=== PATIENT | male | born 1980 | race Caucasian/White ===

== ENCOUNTER 2017-01-22 13:40 | Inpatient (IN) | payer OTHER ==
[~2017-01-22] VITALS: Ht 193 cm; Wt 103.0 kg
--- NOTE | ~2017-01-22 | ER ---
PATIENT'S NAME: RHONDA ABREU [facility] AGE: 36 Y [address] ROOM: [place] [address] LOCATION: [facility] [place] ADMIT DATE: 01/22/2017 ER/Outpatient Report DISCHARGE DATE: FAMILY PHYSICIAN: PHYSICIAN, NO ATTENDING PHYSICIAN: RA PATEL Time of Arrival: 1340 hours. Time of Evaluation: 1405 hours. CHIEF COMPLAINT: Diarrhea, nausea x2 weeks. HISTORY OF PRESENT ILLNESS: A 36-year-old male presents to the ER, who states he has not been feeling well for the past 2 weeks. The patient is actually from [place], [place]. He states he initially thought he had GI flu because that was going around in their hometown. He was evaluated at the Urgent Care there and covered him with Bactrim, and he had some leftover Zofran that he has been using as well. They state they went [place] for the weekend and [place], and then were on the way back when he felt like he could need to be rechecked out. He states he has a cramping abdominal discomfort more so on his upper quadrants than lower. He states he has had diarrhea as well over the past 2 weeks, that have not improved, and he did vomit initially, but that has not been there for the past few days, however. He did initially have a couple of days of fever but has not ran a fever since and just feels fatigued. He states he has early satiety when he is eating, so he has not been eating or drinking very well. ALLERGIES: PENICILLIN. MEDICATIONS: 1. Bactrim. 2. Zofran. 3. Imodium. PAST MEDICAL HISTORY: Reflux. PAST SURGICAL HISTORY: Knee surgery and LASIK eye surgery. SOCIAL HISTORY: He drinks alcohol rarely. Denies any smoking use. REVIEW OF SYSTEMS: PATIENT'S NAME: RHONDA ABREU [facility] AGE: 36 Y [address] ROOM: [place] [address] LOCATION: [facility] [place] ADMIT DATE: 01/22/2017 ER/Outpatient Report DISCHARGE DATE: FAMILY PHYSICIAN: PHYSICIAN, NO ATTENDING PHYSICIAN: RA PATEL A 10-point review of system was completed and was negative with the exception of those discussed in the HPI. PHYSICAL EXAMINATION: VITAL SIGNS: Height 6 feet 4 inches stated, weight 101.2 kg taken, blood pressure is 127/74, pulse 79, respirations 14, temperature 97.8 degrees tympanically, saturations 97% on room air. Smithers Coma Score is 15. GENERAL: An alert, calm, well-developed male, in no obvious distress. HEENT: Head: Normocephalic. He does display moist mucous membranes. Eyes: Pupils are equal and reactive to light. NECK: Supple. No lymphadenopathy. LUNGS: Clear to auscultation bilaterally. No wheezes or crackles. Normal respiratory effort. HEART: Regular rate and rhythm. No lifts, thrills, or murmurs. ABDOMEN: Soft. He has generalized tenderness in all 4 quadrants with palpation. No guarding or rebound tenderness. He has hypoactive bowel sounds. EXTREMITIES: No clubbing or cyanosis. He has full range of motion of all limbs. SKIN: Warm, dry, and intact. LABORATORY DATA AND X-RAYS: CBC: White count is 6.4, hemoglobin is 15.5, platelets 309, ANC is 3.3. CMS: Potassium is 3.0, alkaline phosphatase is 71, AST is 73, ALT is 79, estimated GFR is 60, BUN is 7, creatinine is 1.7. Total bilirubin is 0.8, amylase is 101, lipase is 1291. Urinalysis is negative for any infection. We did an ultrasound of his right upper quadrant. It does show sludge in the gallbladder. He does have a slightly dilated common bile duct. He also has a mildly elevated spleen. We did do a CT scan with IV contrast, no other acute abnormality was seen besides the gallbladder and reported by Radiology. IMPRESSION: 1. Pancreatitis, most likely secondary to his gallbladder. 2. Hypokalemia. 3. Diarrhea. 4. Splenomegaly. ASSESSMENT AND PLAN: I did discuss the patient's care with Dr. Hatfield. We did start an IV and did give him a total of 2 L of IV fluids and then ran at 125 mL/h. The patient did not want any pain medication while he was here and rested comfortably the entire stay. The patient does not have a primary care physician here in [place]. Therefore, I called the hospitalist service, and they will be admitting the patient for further workup. The patient and the patient's understand and agree with care. PATIENT'S NAME: RHONDA ABREU [facility] AGE: 36 Y [address] ROOM: [address] [address] LOCATION: [facility] [place] ADMIT DATE: 01/22/2017 ER/Outpatient Report DISCHARGE DATE: FAMILY PHYSICIAN: PHYSICIAN, CHARLY ATTENDING PHYSICIAN: RA PATEL ALINA WILCOX PA-C FOR MD PHOENIX VELASQUEZ/ana /[id number] d: 01/22/172120 t: 02/15/17 09, OUTPATIENT REPORT
--- NOTE | ~2017-01-22 | CON ---
PATIENT'S NAME: RHONDA ABREU [facility] AGE: 36 Y [address] ROOM: [address] [place], [place] [address] LOCATION: [facility] [place] ADMIT DATE: 01/22/2017 Consultation DISCHARGE DATE: FAMILY PHYSICIAN: PHYSICIAN, NO ATTENDING PHYSICIAN: RA PATEL DATE OF CONSULTATION: 01/24/2017 REFERRING PHYSICIAN: KAREN REYNA MD REFERRING PROVIDER: Ra Patel MD REASON FOR CONSULTATION: Acute pancreatitis and diarrhea. HISTORY OF PRESENT ILLNESS: This is a very pleasant, 36-year-old male, who has no significant past medical history except for gastroesophageal reflux disease, who takes Nexium with good relief. The patient reports that his symptoms began 2 weeks ago including nausea and diarrhea. At that time, he felt that it was just a "bug." He reports postprandial diarrhea significantly after drinking and eating. Since the onset of his symptoms, he reports a 20-pound weight loss. He has taken Imodium, though it only provides him mild relief with "enough time to get to the restroom." He has complained of night awakening symptoms as well as incontinence secondary to urgency. The patient reports that he has not been eating or drinking secondary to the frequency of the diarrhea. He does note some nausea intermittently. Denies any vomiting. He denies any current fever or chills, though reports fever at home of 102. The patient complains of generalized abdominal discomfort located throughout his abdomen. He denies any blood or melena in his stool. He had been evaluated at Urgent Care and was placed on Bactrim x5 days without any relief. The stool color, he states, is brown, then moved to green, and now currently yellow. Stool studies have been completed that are negative for C diff, O and P, and occult stool. On admission, the patient's lipase was elevated at 1291, with a recheck this morning at 1100. Amylase was 101. Ultrasound showed sludge-filled gallbladder as well as splenomegaly. CT scan was negative. An MRCP was completed, showing gallbladder sludge filled without any stones. There was a small amount of peripancreatic edema noted around the pancreatic head extending into the duodenum. Spleen was measured at 15 cm, though the biliary tree was normal. He denies any family history of gastrointestinal issues, though he is unknown on his biological side. He also denies a history of upper endoscopy and colonoscopy. PAST MEDICAL HISTORY: Gastroesophageal reflux disease. PATIENT'S NAME: RHONDA ABREU [facility] AGE: 36 Y [address] ROOM: [address] [place], [place] [address] LOCATION: [facility] [place] ADMIT DATE: 01/22/2017 Consultation DISCHARGE DATE: FAMILY PHYSICIAN: PHYSICIAN, NO ATTENDING PHYSICIAN: RA PATEL PAST SURGICAL HISTORY: Right knee surgery. He denies any upper endoscopy or colonoscopy. SOCIAL HISTORY: He lives with his . He has 4 children. He denies smoking except for intermittently. He is active in the [employer]. He denies any alcohol or illicit drug use. FAMILY HISTORY: The patient is adopted. He is unsure regarding his biological parent's history. ALLERGIES: PENICILLIN. CURRENT MEDICATIONS: Please refer to the medication administration record. REVIEW OF SYSTEMS: A 10-point review of systems was completed, and all were negative except for those identified in the History of Present Illness. PHYSICAL EXAMINATION: GENERAL: A very pleasant, 36-year-old male, lying in bed, who appears to be in no acute distress. VITAL SIGNS: Temperature 98.0, pulse of 71, respirations of 18, blood pressure 131/61, and oxygen saturation is 96% on room air. SKIN: [place], warm, and dry. No jaundice. HEENT: Head is normocephalic and atraumatic. Pupils are equal, round, and reactive to light. Sclerae are clear, nonicteric. Oral mucosa is pink and moist. No thyromegaly. NECK: Soft and supple. CARDIOVASCULAR: Regular. Normal S1 and S2. RESPIRATORY: Respirations even and unlabored. Lungs clear to auscultation. ABDOMEN: Soft and round. Generalized tender throughout. No rebound, rigidity, or guarding noted. Bowel sounds positive x4 quadrants. MUSCULOSKELETAL: No muscle weakness or atrophy. EXTREMITIES: No clubbing, cyanosis, or edema. NEUROLOGICAL: Grossly nonfocal. LABORATORY AND DIAGNOSTIC DATA: White blood cell count of 5.3, hemoglobin of 13.2, hematocrit of 37.8, and platelets of 223. Chemistry panel includes a glucose of 89, BUN of 4, creatinine of 1.0, sodium 144, potassium of 3.6, chloride of 116, and CO2 of PATIENT'S NAME: RHONDA ABREU [facility] AGE: 36 Y [address] ROOM: [address] [place], [place] [address] LOCATION: [facility] [place] ADMIT DATE: 01/22/2017 Consultation DISCHARGE DATE: FAMILY PHYSICIAN: PHYSICIAN, NO ATTENDING PHYSICIAN: RA PATEL 22. Albumin of 3.0. AST elevated on admission at 73, now 48; ALT elevated at 79, now 83; and alkaline phosphatase of 71, now 50. Total bilirubin 0.8, now is 0.5. Magnesium 2.0. Triglyceride level is 137. Lipase on admission was 1291, with a recheck of 1100 at this time. The patient did undergo abdominal ultrasound showing gallbladder sludge. CT was essentially negative. MRCP completed showing distended gallbladder with sludge. Biliary tree nondilated. No common bile duct stones or gallstones. Splenomegaly. A small amount of peripancreatic fluid at the pancreatic head and second portion of the duodenum consistent with localized pancreatitis. ASSESSMENT AND PLAN: Again, this is a very pleasant, 36-year-old male who was recently admitted to [facility] with a 2-week generalized complaint of abdominal discomfort and diarrhea. 1. Acute mild pancreatitis. The patient's lipase was elevated on admission as well as seen via MRCP. Likely pancreatitis is secondary to biliary in nature. We will allow for bowel rest. We do recommend for the patient to undergo laparoscopic cholecystectomy in approximately 2 weeks after the pancreatitis has continued to resolve. 2. Chronic diarrhea. This is likely infectious in origin. May be Clostridium difficile, though all stool workup has been completed and negative. We will empirically treat with Flagyl. Plan for colonoscopy on for further evaluation. 3. Longstanding gastroesophageal reflux disease. We will also go forth with an upper endoscopy to rule out Lau esophagus and continue management of the patient's gastroesophageal reflux disease. 4. Splenomegaly, unsure of etiology as his spleen measured at 15 cm. We will request hematology/oncology consult secondary to his splenomegaly as well as associated weight loss. We will also obtain a celiac panel for evaluation of celiac disease. Further recommendations to be given over the patient's in-patient stay. Thank you for this consult and allowing us to participate in the care of this patient. ANIKA BLACKWELL APRN FOR MD CHIQUITA LEE/ana /[id number] d: 01/25/17 1419 t: 02/06/17 1150, CONSULTATION REPORT
--- NOTE | ~2017-01-22 | CON ---
PATIENT'S NAME: KYLER ABREU [facility] AGE: 36 Y [address] ROOM: [address] [place], [place] [address] [place]: [facility] [place]MIT DATE: 01/22/2017 Consultation DISCHARGE DATE: FAMILY PHYSICIAN: PHYSICIAN, NO ATTENDING PHYSICIAN: RA PATEL REFERRING PHYSICIAN: KAREN REYNA MD This is a consult to Dr. Reyna. Kyler Abreu is a 36-year-old man with uncharacterized splenomegaly documented in the course of a workup for pancreatitis. HISTORY OF PRESENT ILLNESS: Obtained from and Mrs. Abreu who are good historians and from review of the current [facility] record. Mr. Abreu was in his normal state of health until early to mid December 2016. He lived in [place], [place], with his and their four daughters. He worked in water [employer], 60-70 hours a week. He had no formal or informal exercise program, but was not sedentary. He was limited by right knee pain to running short distances. Two weeks ago, the patient developed diarrhea, abdominal pain, fevers, nausea, vomiting, and ultimately lost 20 pounds. The diarrhea was so severe that he developed fecal incontinence on rare embarrassing occasions. He experienced up to 7 bowel movements on the worst day. He took the loperamide. Sometimes his stools were quite voluminous and sometimes they were not voluminous. His stools were occasionally watery. The discomfort was like a "gurgling." It is in the periumbilical area. It is not clear, but it may radiate to the back. The patient reported to an Urgent Care Center in [place] and trimethoprim/sulfamethoxazole was administered. The patient developed early satiety. He took ondansetron for nausea which was somewhat helpful. The nausea is intermittent and related to eating and also to physical tasks such as mowing the lawn. He has not vomited any undigested food. At worse, he perhaps vomited four times in the day. The pain continues to be cramping and probably does radiate to the back. The patient can identify no exposure, has not traveled to foreign or distant lands recently and nobody around him has been disabled with similar symptoms. His urine became concentrated. The patient and his were in [place], [place], despite this illness which had lasted a couple of weeks. On their way back, the patient was overcome with fatigue and thought it prudent to be evaluated at the nearest emergency room, so he came in to the [facility] Emergency Room on 01/22/2017. The patient was evaluated and the diagnosis of pancreatitis was PATIENT'S NAME: KYLER ABREU [facility] AGE: 36 Y [address] ROOM: [address] [place], [place] [address] LOCATION: [facility] [place]MIT DATE: 01/22/2017 Consultation DISCHARGE DATE: FAMILY PHYSICIAN: PHYSICIAN, NO ATTENDING PHYSICIAN: RA PATEL made and hydration and admission were recommended. In the emergency room. The urinalysis revealed 30 mg/dL of protein, 0-2 wbc's and rare rbc's per high- power field. The white count was 6400, hemoglobin 15.5 the MCV is 79, and the platelets 309,000 with 38 segs, 13 bands, and 34 lymphocytes. Following a day of hydration, the hemoglobin was 13.2 in the MCV was 80. The CMS was remarkable for a potassium of 3 and AST of 73 IU/L with the upper limits, normal being 40, and an ALT of 79 with the upper limits of normal being 78. The EGFR was greater than 60. The amylase was 101 IU/L with the upper limits of normal being 90 and the lipase was 1291 IU/L with the upper limits of normal being 393. Blood cultures have withdrawn and they are negative. A stool for occult blood was negative. Stool for ova and parasites, and for the Clostridium difficile toxin were negative. An abdominal ultrasound revealed gallbladder distention with sludge but no definable stones. The spleen was 15 cm. The pancreatic body and tail were obscured by gas, but the visualized pancreas was unremarkable. An MRI of the pancreas revealed gallbladder sludge. There was a small amount of peripancreatic edema at the pancreatic head, extending around the duodenum and at the location. The spleen was 15 cm. A CAT scan of the abdomen and pelvis revealed a nondilated biliary tree with a somewhat distended gallbladder with no stones. Splenomegaly was not described on the CAT scan The patient feels better since he was hydrated but still has early satiety and some heartburn and certainly has not completely recovered. 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 The patient has no past medical history of pancreatitis and no family history of pancreatitis. ACTIVE MEDICAL PROBLEMS, CHRONIC AND DIAGNOSED: 1. Overweight, BMI 27.6 kg/M2. 2. Splenomegaly noted on 01/22 with a spleen of 15 cm. 3. Gallbladder sludge. 4. GERD-empiric diagnosis. The patient has been on esomeprazole with excellent remission of symptoms of heartburn and cough. ACUTE MEDICAL ILLNESSES (RESOLVED), PAST SURGERIES, INJURIES: 1. 2004-LASIK surgery to both eyes. 2. 2012-right knee tibial osteotomy. 3. 2013-sacral fracture. MEDICATION: Upon admission loperamide. ADVERSE REACTIONS TO MEDICATIONS, TRANSFUSIONS, ALLERGIES: 1. Penicillin. The patient's mother told he is allergic to penicillin. He does not know how this was manifested. 2. The patient has no history of blood transfusions. PATIENT'S NAME: KYLER ABREU [facility] AGE: 36 Y [address] ROOM: [address] [address] [place]: [facility] [place]MIT DATE: 01/22/2017 Consultation DISCHARGE DATE: FAMILY PHYSICIAN: PHYSICIAN, NO ATTENDING PHYSICIAN: RA PATEL HABITS: 1. Tobacco smoked 2-3 cigarettes a day for 6 months, but has abstained since 2002. Alcohol, 1-2 alcoholic beverages a month over the years. Caffeine 1-2 cups of coffee per day. 2. One to two sodas a day. IMMUNIZATIONS: Positive childhood immunizations. Negative flu vaccine, negative Pneumovax, negative varicella zoster virus, positive hepatitis B family history negative for pancreatitis or cancer. SOCIAL HISTORY: The patient was born and raised a [place]. He served our country in the [employer] and was deployed to [place] on three occasions and to [place] as well. 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 and Mrs. Abreu currently lives in [place]. They are members of [employer]uther[employer] and raising 4 daughters, age 4, 3, 2, and less than one year. REVIEW OF SYSTEMS: The patient's heartburn has been well controlled and has not had to be on esomeprazole. PHYSICAL EXAMINATION: VITAL SIGNS: Pulse is 60 and regular, blood pressure 130/60, respiratory rate 14, temperature 97.8. Height 76 inches. Weight is 103 kg (227 pounds). BMI 27.6 kg/M2. GENERAL: A well-developed, slightly overweight, 36-year-old, male, in no acute distress. HEENT: Unremarkable. Lymph nodes not palpable. NECK: Without JVD or carotid bruits. SKIN: [place]. CHEST: Clear. CV: Regular rhythm with no murmurs, bruits or adventitious sounds. ABDOMEN: Bowel sounds present. No masses, tenderness or megaly. The spleen is not palpated. GENITAL AND RECTAL: Not examined. EXTREMITIES: Without peripheral edema. Pulses 2+ throughout. NEURO: Grossly intact. IMPRESSION: 1. A 36-year-old man with a 2-week history of fever, severe diarrhea, abdominal cramping, nausea, and vomiting, early satiety, and a 20-pound weight loss with a minimal macrocytic. After rehydration, mild transaminitis, hyperamylasemia and hyperlipasemia, mild splenomegaly (15 PATIENT'S NAME: KYLER ABREU [facility] AGE: 36 Y [address] ROOM: [place] [address] LOCATION: [facility] [place] ADMIT DATE: 01/22/2017 Consultation DISCHARGE DATE: FAMILY PHYSICIAN: PHYSICIAN, NO ATTENDING PHYSICIAN: RA PATEL cm on sono and MRI) and a small amount of peripancreatic fluid at the head of the pancreas and second portion of the duodenum, notable with localized pancreatitis. 2. There is a low chance that the splenomegaly is a manifestation of a hematopoietic or lymphoproliferative disorder leading to the other symptoms. There is somewhat greater chance, the splenomegaly could be a harbinger of a lymphoproliferative disorder in the future. Conceivably, this splenomegaly could be reactive to the underlying process. 3. It is not clear what is cause of pancreatitis, one has to keep the possibility of viral infections or toxins in mind. DIAGNOSTICS: 1. LDH. 2. Repeat lipase. 3. CMV, EBV, and herpes antibody titers. TREATMENT: Supportive for pancreatitis. PATIENT EDUCATION: 1. Acknowledges not clear why he has splenomegaly and pancreatitis. 2. Made the point this is unlikely to be a manifestation of a lymphoproliferative or a hematopoietic disorder. 3. Made the point that it would probably be prudent to repeat the sonogram of the spleen, depending on how his current episode resolves, he is sure that is stable in the future. MD DONTRELL LINDA/modl /[id number] CC: MD Ra Solomon MD d: 01/25/17 1748 t: 01/26/17 1534, CONSULTATION REPORT
--- NOTE | ~2017-01-22 | OR ---
PATIENT'S NAME: RHONDA ABREU [facility] AGE: 36 Y [address] ROOM: [address] [address] [place] [facility] [place]: 01/22/2017 OR/Procedure Report DISCHARGE DATE: FAMILY PHYSICIAN: PHYSICIAN, NO ATTENDING PHYSICIAN: RA PATEL SURGEON: Justice Rodriguez MD RECREATION FACILITY MANAGER: DATE OF PROCEDURE: 01/26/2017 PROCEDURE PERFORMED: Colonoscopy with biopsies. INDICATION FOR PROCEDURE: Diarrhea. MEDICATIONS: Please see Anesthesiology record for details. CONSENT: The risks/benefits/alternatives were discussed and the patient or his power of environmental attorney expressed understanding and agreed to proceed. Informed consent was obtained and placed on the chart. Time-out was completed prior to starting the procedure. DESCRIPTION OF PROCEDURE: Patient was placed in the left lateral decubitus position. One lead EKG monitoring was used along with intermittent blood pressure monitoring and pulse oximetry. The above medications were given and titrated to response. Once adequate sedation was completed, rectal exam was performed. The colonoscope was then passed through the rectum, into the sigmoid colon. The scope was then passed through the descending, transverse and ascending colon. The scope was then passed into the cecum. The cecum was identified by the ileocecal valve and appendiceal orifice. The scope was then withdrawn. On withdrawal, the mucosa of the colon was examined. In the rectum, retroflexion was completed. The scope was then withdrawn from the patient. The patient tolerated the procedure well. There were no complications. SUMMARY OF FINDINGS: 1. Normal colonic mucosa from the rectum to the cecum. There was one polyp seen, and random biopsies were taken from the colon to rule out microscopic colitis. 2. The terminal ileum was intubated and appeared normal. 3. Internal hemorrhoids, small, nonbleeding. 4. Sigmoid colon polyp, 4 mm, sessile removed using biopsy forceps. ASSESSMENT AND PLAN: Diarrhea: Nothing seen on colonoscopy to explain the patient's symptoms. We will await biopsies to rule out microscopic colitis. If this is negative, I would just use Imodium as needed for diarrhea as long as he is not having increasing abdominal pain or fevers. PATIENT'S NAME: RHONDA ABREU [facility] AGE: 36 Y [address] ROOM: [address] [place] [address] [place] [facility] [place]: 01/22/2017 OR/Procedure Report DISCHARGE DATE: FAMILY PHYSICIAN: CHARLY DUMONT ATTENDING PHYSICIAN: RA PATEL J MD ANA PAULA CHAVEZ/ana /[id number] d: 01/26/17 1656 t: 01/30/17 1431, OPERATIVE SUMMARY
--- NOTE | ~2017-01-22 | HP ---
PATIENT'S NAME: RHONDA ABREU [facility] AGE: 36 Y [address] ROOM: [place] [address] [place]: [facility] [place] DATE: 01/22/2017 History & Physical DISCHARGE DATE: FAMILY PHYSICIAN: PHYSICIAN, CHARLY ATTENDING PHYSICIAN: RA PATEL DATE OF SERVICE: ADDENDUM: HISTORY OF PRESENT ILLNESS: Five days ago, the patient went into see his primary doctor who placed the patient on Bactrim which he is currently on. MD TERESA DICKENS/ana /[id number] D: 218 T: [id number] HISTORY & PHYSICAL
--- NOTE | ~2017-01-22 | OR ---
PATIENT'S NAME: RHONDA ABREU [facility] AGE: 36 Y [address] ROOM: [place] [address] LOCATION: [facility] – [place] ADMIT DATE: 01/22/2017 OR/Procedure Report DISCHARGE DATE: FAMILY PHYSICIAN: PHYSICIAN, NO ATTENDING PHYSICIAN: RA PATEL SURGEON: Justice Rodriguez MD SAW SHARPENER: DATE OF PROCEDURE: 01/26/2017 PROCEDURE PERFORMED: Esophagogastroduodenoscopy. INDICATION: Nausea and diarrhea. MEDICATIONS: Please see anesthesiology record for details. CONSENT: The risks/benefits/alternatives were discussed, and the patient or his power of banking attorney expressed understanding and agreed to proceed. Informed consent was obtained and placed in the chart. Time-out was completed prior to starting the procedure. DESCRIPTION OF PROCEDURE: The patient was placed in the left lateral decubitus position. One-lead EKG monitoring was used along with intermittent blood pressure monitoring and pulse oximetry. Bite block was placed in the patient's mouth. The above medications were given and titrated to response. Once adequate sedation was completed, the endoscope was passed through the patient's mouth into the posterior oropharynx. The endoscope was then passed into the esophagus, stomach, and duodenal bulb. The duodenum was examined through the third portion. The endoscope was then withdrawn into the stomach. In the stomach, retroflexion was completed. The scope was then straightened and withdrawn from the patient. The patient tolerated the procedure well. There were no complications. SUMMARY OF FINDINGS: 1. Normal proximal esophagus. 2. Distal esophagus with mild esophagitis and irregular Z-line, not biopsied due to the mild esophagitis. 3. Mild gastritis with erosions. No ulcer seen. Status post biopsies to rule out Helicobacter pylori. 4. Mild duodenitis with friability of the mucosa. No ulcerations or lesions noted. Biopsies were taken from this area as well. ASSESSMENT AND PLAN: Nausea and diarrhea: I suspect the patient's symptoms could be from a viral etiology and will get better over time. Okay to advance diet to low-fat diet. We will proceed with colonoscopy. PATIENT'S NAME: RHONDA ABREU [facility] AGE: 36 Y [address] ROOM: [place] [address] LOCATION: [facility] – [place] ADMIT DATE: 01/22/2017 OR/Procedure Report DISCHARGE DATE: FAMILY PHYSICIAN: CHARLY DUMONT ATTENDING PHYSICIAN: RA PATEL J MD ANA PAULA CHAVEZ/tawanal /[id number] d: 01/26/17 1617 t: 01/30/17 1428, OPERATIVE SUMMARY
--- NOTE | ~2017-01-22 | HP ---
PATIENT'S NAME: RHONDA ABREU [facility] AGE: 36 Y [address] ROOM: [address] [place], [place] [address] LOCATION: [facility] – [place] ADMIT DATE: 01/22/2017 History & Physical DISCHARGE DATE: FAMILY PHYSICIAN: PHYSICIAN, NO ATTENDING PHYSICIAN: RA PATEL DATE OF SERVICE: CHIEF COMPLAINT: Nausea and diarrhea. HISTORY OF PRESENT ILLNESS: This is a 36-year-old male with no significant past medical history except for gastroesophageal reflux disease, who were on their way home to [place], and so had to stop by in [place] as the patient was not feeling great. He reported that his symptoms started 2 weeks ago with nausea and diarrhea, and he thought probably this might just be due to a bug, which has been going on around in their town. He reports that he has diarrhea each time he drinks or eats, and since the onset of his symptoms, he has lost about 20 pounds. He reported that he has been taking Imodium, which helps a little bit with the diarrhea, as per it does not make him incontinent, just gives him some time to get to the bathroom. However, he reports that when he does not eat or drink, the frequency of the diarrhea reduces or he does not have any stool. He also notes some nausea as well as some vomiting as well. He reported that 3 to 4 days after the onset of his symptoms that he did get some temperature for a couple of days of 102, and for the vomiting, Zofran has helped. He reports that he has never had a similar symptom in the past. He also notes some agitated vague generalized abdominal ache. He does not describe it as a pain. He denies urinary symptoms. He denies joint pains. He denies neck pain or back pain. Notes some lightheadedness. REVIEW OF SYSTEMS: The 13 elements of review of systems were asked and as documented in the HPI. The others are negative. PAST MEDICAL HISTORY: Includes gastroesophageal reflux disease. SOCIAL HISTORY: He lives with his . Denies smoking except for about 6 months when he started [employer], and this was 15 years ago. Denies use of alcohol. Denies use of illicit drugs. FAMILY HISTORY: He is adopted. Parents both in their 70s. He does not know much about PATIENT'S NAME: RHONDA ABREU [facility] AGE: 36 Y [address] ROOM: [address] [address] LOCATION: [facility] [place] ADMIT DATE: 01/22/2017 History & Physical DISCHARGE DATE: FAMILY PHYSICIAN: PHYSICIAN, NO ATTENDING PHYSICIAN: RA PATEL his biological parents. PAST SURGICAL HISTORY: Includes right knee surgery. PHYSICAL EXAMINATION: VITAL SIGNS: Temperature 98.1, pulse 74, respiratory rate 14, blood pressure 122/71, oxygen saturation 98% on room air. GENERAL: Reveals a young male, who is alert, awake, oriented x3. He is calm, comfortable, not in any form of painful distress. Does not appear to look like somebody that has acute pancreatitis. NEUROLOGIC: Cranial nerves 2 through 12 are intact bilaterally. Sensory is intact bilaterally. Power is 5/5 in all the extremities. HEENT: Normocephalic, atraumatic. Pupils equal and reactive to light bilaterally. Pharynx is normal. Mucosa is moist. Ears: No obvious ear discharge or drainage. NECK: Supple. No area of tenderness. No lymphadenopathy. CARDIOVASCULAR SYSTEM: Normal S1 and S2. Regular rate and rhythm. CHEST: Clear to auscultation bilaterally. ABDOMEN: Soft, nondistended. No area of tenderness. No palpable organomegaly. Positive bowel sounds. EXTREMITIES: There is no joint swelling or erythema or tenderness. SKIN: No rash or skin breakdown. LABORATORY DATA: WBC 6.4, H and H are 15.4 and 44.0, platelets 309. Sodium 140, potassium 3.0, creatinine 1.2, BUN 7, glucose 78. AST 73, ALT 79, alkaline phosphatase 71, albumin 3.6. UA: Leukocytes 25, nitrite negative, bilirubin is positive, wbc 0-2, bacteria rare. Lipase level 1291, amylase 101. MICROBIOLOGY DATA: H. pylori negative. RADIOLOGY DATA: Official report of the ultrasound is still pending. CT of the abdomen and pelvis is reported as negative abdomen and pelvis CT, mildly distended gallbladder, could reflect fasting. ASSESSMENT AND PLAN: This is a 36-year-old male, who comes in with not feeling great. 1. Vague abdominal discomfort probably secondary to pancreatitis, present on admission. Pain right now is around 2 to 3. We will try some Tylenol as clinically patient looks pretty comfortable, .. 2. Acute pancreatitis, unknown etiology, present on admission. Probably from gallstone or sludge in the biliary duct. So, we will get an MRCP in PATIENT'S NAME: RHONDA ABREU [facility] AGE: 36 Y [address] ROOM: [address] [address] LOCATION: [facility] [place] ADMIT DATE: 01/22/2017 History & Physical DISCHARGE DATE: FAMILY PHYSICIAN: PHYSICIAN, NO ATTENDING PHYSICIAN: RA PATEL the morning and management is going to be dependent on that. We will try the patient on some clear liquid diet right now. If he tolerates it well, we will advance. If his pain gets worsen, then we will keep him n.p.o. We will also check his triglyceride level as well. 3. Gastroesophageal reflux disease, present on admission. We will start the patient on Protonix IV. 4. Hypokalemia, present on admission. We will replete with potassium. Line of management was explained to the patient and the , who was present at bedside, and they had no further questions at this time. MD TERESA DICKENS/ana /[id number] D: [id number] T: [id number] HISTORY & PHYSICAL
--- NOTE | ~2017-01-22 | DS ---
PATIENT'S NAME: RHONDA ABREU [facility] AGE: 36 Y [address] ROOM: [address] [place], [place] [address] LOCATION: [facility] – [place] ADMIT DATE: 01/22/2017 Discharge Summary DISCHARGE DATE: 01/26/2017 FAMILY PHYSICIAN: PHYSICIAN, NO ATTENDING PHYSICIAN: Veronica Figueroa PRIMARY DIAGNOSES: 1. Biliary pancreatitis. 2. Postprandial diarrhea. 3. Splenomegaly. 4. Abdominal pain. 5. Gastroesophageal reflux disease as a chronic presenting complaint. 6. Hypokalemia. 7. Elevated transaminases. PRINCIPAL PROCEDURE: Done for the patient includes EGD and colonoscopy by Dr Rodriguez. LABORATORY DATA ON ADMISSION: On admission, WBC was 6.4, was stable throughout hospital stay, prior to discharge was 5.3. H and H on admission was 15.5/44.0, prior to discharge was 15.0/38.1, platelet was stable at 223 upon discharge. Potassium on admission was 3.0, prior to discharge was 4.1. Sodium on admission was 140, was stable throughout hospital stay. Creatinine on admission was 1.2, prior to discharge was 0.9. BUN was stable at 6 upon discharge. AST on admission was 73, prior to discharge was 48; ALT on admission was 29, prior to discharge was 83; alkaline phosphatase was stable and within normal limit, was 50 upon discharge. Total bilirubin of upon discharge was 0.5, LDH was 208, triglyceride level was 137, magnesium was 2.0 stable throughout the hospital stay. UA on admission leukocytes 25, nitrite negative, wbc 0-2, bacteria rare. Serum iron 56, TIBC 201, transferrin saturation 28. Lipase on admission was 291, prior to discharge was 729. Amylase was 101. The patient was evaluated by Gastroenterology on the 3rd day of his hospital stay, they decided to put him on Flagyl. MICROBIOLOGY: Serum for H pylori was negative. Stool for occult blood was negative. Stool for ova and parasite, stool for C difficile was negative. Abdominal ultrasound, abdomen is distended and sludge filled gallbladder. Normal-appearing pancreas and biliary tree, splenomegaly, left kidney is elongated but otherwise normal. CT abdomen and pelvis, negative abdomen and pelvis, CT with mildly distended gallbladder. No particular CT finding of acute cholecystitis, MRCP, distended gallbladder with sludge, biliary tree nondilated. No common duct stones or gallstones evident. Splenomegaly, small amount of peripancreatic fluid at the pancreatic head and second portion of the duodenum consistent with localized pancreatitis. PATIENT'S NAME: RHONDA ABREU [facility] AGE: 36 Y [address] ROOM: [address] [place], [place] [address] LOCATION: [facility] – [place] ADMIT DATE: 01/22/2017 Discharge Summary DISCHARGE DATE: 01/26/2017 FAMILY PHYSICIAN: PHYSICIAN, CHARLY ATTENDING PHYSICIAN: Veronica Figueroa For the hospital course, history of present illness, please take a look at the H and P which was done by Dr. Figueroa. The patient was admitted to medical- surgical unit as a case of pancreatitis. After, the patient had an MRCP done, which revealed sludge but no biliary dilatation or any signs of obstruction. It was deemed that the patient's pancreatitis most probably from biliary pancreatitis. He was kept n.p.o. for the first day of the hospital stay and by the next day of his hospital stay, he was started on clear liquid diet. The patient's abdominal pain was not really a pain, but discomfort, which was controlled with regular basic pain medication. On the second day of the of his hospital stay, he did start clear liquid diet, which was well tolerated without vomiting; however, towards the evening after dinner, the patient did start his postprandial diarrhea which he did complain of upon discharge and also given the fact that he had nausea, we felt the patient should be evaluated by the observatory director rather than going home and setting up an outpatient followup, since patient was already in the patient. So, we did get a GI consult for evaluation of his postprandial diarrhea. After the patient was evaluated by gastroenterologists, they felt and recommended the patient to have a laparoscopic cholecystectomy done in approximately 2 weeks given his presentation with biliary pancreatitis. They did also recommend for hematology and oncology to review the patient given his splenomegaly; however, after patient was reviewed by Hematology, they felt his splenomegaly was not of a lymphoproliferative disorder, but rather of unknown etiology. So, Gastroenterology is recommended for patient to get an EGD and a colonoscopy which was done 2 days after that. The patient was put on clear liquid diet. Had his bowel prep and went in on the day of discharge for his EGD and colonoscopy which was well tolerated without any intraoperative or postop complications. He has EGDs essentially was within normal limit as well as his colonoscopy and biopsies were taken. Following the procedure, the patient was restarted on a full liquid diet and his diet was advanced to regular diet as tolerated, and on the day of discharge, his vital signs were stable, tolerated his diet well and was also instructed that he needs to follow up with the general surgeon for a laparoscopic cholecystectomy in the next 2 weeks. Appointment has been set up with Dr. Jacobsen. Also, the patient is to follow up with GI for the final results of the pathology of his biopsies. He was also told that he needs to continue on the Imodium which he takes anytime he comes on with the diarrhea to ultimately get the results of the biopsy. MEDICATIONS ON DISCHARGE: Includes. 1. Tylenol 650 mg p.o. q.6 hours p.r.n. 2. Imodium 4 mg p.o. as needed p.r.n. 3. Flagyl 500 mg t.i.d. p.o. for 3 more days. PATIENT'S NAME: RHONDA ABREU [facility] AGE: 36 Y [address] ROOM: [address] [address] LOCATION: [facility] – [place] ADMIT DATE: 01/22/2017 Discharge Summary DISCHARGE DATE: 01/26/2017 FAMILY PHYSICIAN: PHYSICIAN, NO ATTENDING PHYSICIAN: Veronica Figueroa MD ODO/ana /[id number] d: 01/26/17 1544 t: 01/29/17 1653, DISCHARGE SUMMARY
[2017-01-22 14:40] LABS: HEMOGLOBIN 15.5 g/dL (12.0-17.0); MCH 27.9 pg (27.0-34.0); MCHC 35.2 gm/dL (32.0-36.5); MCV 79.3 fl (83.0-98.0); MPV 10.2 fl (9.4-12.4); PLATELET COUNT 309 K/uL (150-450); RBC 5.55 M/uL (4.00-6.00); RDW-CV 13.1 % (11.9-14.6); WBC 6.4 K/uL (4.0-11.0)
[2017-01-22 14:55] LABS: ALBUMIN 3.6 gm/dL (3.5-5.0); ALK PHOS 71 IU/L (33-138); ALT 79 IU/L (12-78); AST 73 IU/L (10-40); BLOOD UREA NITROGEN 7 mg/dL (6-24); CALCIUM 8.6 mg/dL (8.5-10.5); CHLORIDE 107 mMol/L (96-110); CO2 26 mMol/L (22-32); CREATININE 1.2 mg/dL (0.6-1.3); ESTIMATED GFR (MDRD EQUATION) > 60; SODIUM 140 mMol/L (135-145); TOTAL BILIRUBIN 0.8 mg/dL (0.0-1.5); TOTAL PROTEIN 7.1 g/dL (6.0-8.4)
[2017-01-22 15:03] LABS: ABSOLUTE NEUTROPHIL CT (ANC) 3.3 K/uL (1.4-9.0); BANDED NEUTROPHIL # 0.8 K/uL (0.0-0.1); BANDED NEUTROPHILS % 13 %; LYMPHOCYTE # 2.2 K/uL (0.8-4.0); LYMPHOCYTE % 34 %; MONOCYTE # 0.8 K/uL (0.0-1.0); SEGMENTED NEUTROPHIL # 2.4 K/uL (1.4-9.0); SEGMENTED NEUTROPHIL % 38 %
[2017-01-22 15:24] LABS: BLOOD URINE 10 /UL (NEGATIVE); COLOR URINE YELLOW (YELLOW); GLUCOSE URINE NEGATIVE (NEGATIVE); KETONE URINE NEGATIVE (NEGATIVE); LEUKOCYTES URINE 25 /UL (NEGATIVE); NITRITE URINE NEGATIVE (NEGATIVE); PROTEIN URINE 30 mg/dL (NEGATIVE); TURBIDITY URINE CLEAR (CLEAR); UROBILINOGEN URINE 4 mg/dL (NORMAL)
[2017-01-22 15:34] LABS: EPITHELIAL URINE 0-2 #/HPF (NEGATIVE); RBC URINE RARE #/HPF (NEGATIVE); WBC URINE 0-2 #/HPF (NEGATIVE)
[2017-01-22 15:35] LABS: BACTERIA URINE RARE (NEGATIVE); MUCUS URINE 1+ (NEGATIVE)
[2017-01-22] MEDS ORDERED: ZOFRAN4 MG PO (18:04)
[2017-01-22] MEDS ORDERED: BACTRIM DS1 TAB PO (18:04)
[2017-01-22] MEDS ORDERED: IMODIUM2 MG PO (18:05)
--- NOTE | 2017-01-23 02:13 | NUR ---
Significant Event: Patient up ad-doris, has rested quietly throughout the night. Potassium infusion completed. IV to right anticubital. NPO since midnight for MRCP in am. Has not complained of any pain or nausea and no loose stools. Follow up: Needs stool sample for c-diff, O+P, occult blood.
[2017-01-23 05:32] LABS: HEMATOCRIT 37.8 % (37.0-53.0); HEMOGLOBIN 13.2 g/dL (12.0-17.0); MCH 27.9 pg (27.0-34.0); MCHC 34.9 gm/dL (32.0-36.5); MCV 79.9 fl (83.0-98.0); MPV 10.1 fl (9.4-12.4); RBC 4.73 M/uL (4.00-6.00); RDW-CV 13.3 % (11.9-14.6); WBC 5.3 K/uL (4.0-11.0)
[2017-01-23 05:35] LABS: PLATELET COUNT 223 K/uL (150-450)
[2017-01-23 05:45] LABS: BLOOD UREA NITROGEN 4 mg/dL (6-24); CALCIUM 8.3 mg/dL (8.5-10.5); CO2 22 mMol/L (22-32); ESTIMATED GFR (MDRD EQUATION) > 60; POTASSIUM 3.6 mMol/L (3.7-5.1); SODIUM 144 mMol/L (135-145)
[2017-01-23 05:46] LABS: ANION GAP 9.6 (10.0-19.0); CHLORIDE 116 mMol/L (96-110)
[2017-01-23 06:21] LABS: BANDED NEUTROPHIL # 0.5 K/uL (0.0-0.1); BANDED NEUTROPHILS % 10 %; LYMPHOCYTE # 1.6 K/uL (0.8-4.0); LYMPHOCYTE % 30 %; MONOCYTE # 0.5 K/uL (0.0-1.0); SEGMENTED NEUTROPHIL # 2.5 K/uL (1.4-9.0); SEGMENTED NEUTROPHIL % 47 %
[2017-01-23 14:59] LABS: TOTAL PROTEIN 5.7 g/dL (6.0-8.4)
[2017-01-23 15:02] LABS: TOTAL BILIRUBIN 0.5 mg/dL (0.0-1.5)
[2017-01-23] MEDS ORDERED: BACTRIM DS1 TAB PO (15:46)
--- NOTE | 2017-01-23 16:04 | NUR ---
Significant Event:Is A/O.Had MRICP this morning.Has SL in Rt.anticub.Has been up,rufus.well.No nausea.Had diarrhea instantly after taking cl liq diet & again after taking full liq.No real discomfort when took in cl liqs but when took full liq he said he felt just like he did at home with the abd.fullness & some discomtort,but not really pain.He is wanting to try more solid food.He said he feels that would be the true test.Pleasant. Follow up:
--- NOTE | 2017-01-24 04:56 | NUR ---
RSignificant Event: Pt A&Ox3. Vital signs stable, remains on RA. Most pain is associated with his back. Did get PRN order for tramadol 100mg q8 and previous order of tylenol 650mg q6. Last dose given for both 346. Pt was supposed to d/c, but still was having a lot of diarrhea. Got 1 time order of 6mg Immodium and then has additional follow up of Immodium. Did c/o nausea last night, but resolved with zofran. [place] consulted GI for recurrent diarrhea. Tried to advance diet yesterday with regular diet, but diarrhea reoccured. Pt can tolerate clears, but when advancing to full liquids, cannot handle it. Has PIV in RAC, SL. Ambulates up independently. Follow up: Continue plan of care. GI to see this AM
--- NOTE | 2017-01-24 15:46 | NUR ---
Significant event: Patient is alert and oriented x3. VSS, on room air. IV to right AC, saline locked. Has had continued bouts of diarrhea after eating full liquids this morning. Back to a clear liquid diet. Did have nausea this afternoon, zofran given around 1500. Plans to have colonoscopy and possible EGD on with GI. Is up independently. Cooperative with cares.
--- NOTE | 2017-01-25 03:59 | NUR ---
Significant Event: Pt A&Ox3. Vital signs stable, remains on RA. Pain is associated with URQ radiating to back. Has PRN tylenol and tramadol available. No c/o nausea overnight. Had one loose stool last night. Have not given the PRN immodium. PIV RAC, SL; int ABx. Pt tolerating clear liquid diet; unable to advance d/t N/V/D. GI consulted, plan to have colonoscopy and possible EGD on . Up ad doris, ind. Follow up: Continue with plan of care. Possible speak to GI doctor about colonoscopy prep Golytely vs. Miralax combo.
[2017-01-25 04:15] LABS: HEMATOCRIT 38.1 % (37.0-53.0)
[2017-01-25 04:29] LABS: ANION GAP 10.1 (10.0-19.0); BLOOD UREA NITROGEN 6 mg/dL (6-24); CALCIUM 8.4 mg/dL (8.5-10.5); CHLORIDE 109 mMol/L (96-110); CO2 27 mMol/L (22-32); CREATININE 0.9 mg/dL (0.6-1.3); ESTIMATED GFR (MDRD EQUATION) > 60; POTASSIUM 4.1 mMol/L (3.7-5.1); SODIUM 142 mMol/L (135-145)
--- NOTE | 2017-01-25 15:35 | NUR ---
Significant Event: PT AO. VSS ON RA, AFEBRILE. IV TO R AC, SALINE LOCKED. CONTINUE ON IV ABX. TOLERATING CLEAR LIQUID DIET- NO REDS OR PURPLES. WILL BE NPO AT 0500 FOR COLONOSCOPY/EGD. SUPREP WILL START AT 1800, SECOND DOSE AT 0300. PERMITS ARE ON CHART, NEED SIGNED. DR REYNA HAS NOT BEEN AROUND TO DO RISKS AND BENEFITS YET. PT IS UP AD RONALDO IN ROOM. DENIES PAIN, DENIES NAUSEA. Follow up: COLONOSCOPY PREP, NPO AT 0500
--- NOTE | 2017-01-26 04:17 | NUR ---
Significant Event: Patient alert and oriented X4. Up ad doris in room. Started suprep at 1800, but vomited up most of it. POULTRY CLEANER called and told to give next dose 1/2 after pre dosing with zofran and then half about an hour later and to do this for 0300 dose. Patient tolerating well. Pre medicated 0300 dose with more zofran. Vitals stable and on room air. IV to R) AC with intermittent Flagyl. Plan for colonoscopy and EGD today. NPO at 0500. Pre op checklist started. Permits printed, but risks and benefits not in chart, so not signed. C-diff negative and occult blood negative. Cooperative with cares. Denies pain/nausea. Follow up: Monitor stool color for procedure
--- NOTE | 2017-01-26 09:09 | NUR ---
A - NUTRITION F/U. COLONOSCOPY/EGD TODAY. GLU 89, BUN/ICT DEVELOPER 6/0.9. PT NPO; HAS BEEN CLEAR LIQUIDS, UNABLE TO ADVANCE D/T N/V/D. D - AT RISK W/ UNINTENDED WT LOSS R/T INADEQUATE ENERGY INTAKE AEB 20# WT LOSS. I - GOAL: 50-75% INTAKE BY DISMISSAL. M/E - WILL OFFER ENSURE CLEAR WHEN DIET RESUMES AND CONT TO MONITOR INTAKE. F/U IN 3-5 DAYS.
[2017-01-26] MEDS ORDERED: TYLENOL325 MG PO (15:17)
[2017-01-26] MEDS ORDERED: FLAGYL500 MG PO (15:18)
--- NOTE | 2017-01-26 15:35 | NUR ---
D: Orders received for the patient to be discharged to home today. I: Dismissal instructions were prepared and reviewed with the patient and his virtually. The following information was discussed including [place] teaching sheets provided: Understanding Pancreatitis, discharge instructions for acute pancreatitis, upper GI endoscopy with biopsy, lower GI endoscopy, Lap ramesh instructions for future appointment with Dr. Jacobsen, Tylenol, Flagyl and Preventing DVT. Reviewed all follow up appointments and new medication to be filled after discharge at the pharmacy of his choice. R: The patient and his both verbalized understanding of the dismissal education at the time of teaching with no further questions. P: The above information was shared with the primary nurse and the charge nurse that the patient dismissal education was completed. The patient is ready for discharge to the front door via wheel chair by nursing staff.
--- NOTE | 2017-01-26 17:05 | NUR ---
Significant Event: a/ox3, pleasant and cooperative with cares, independent in room. Down for EGD and colonoscopy this am. After returning to floor had cream of wheat, toast and ice cream, no c/o abdominal pain after intake. IV flagyl per emar ran without incident. Discharged home with all belongings with . Follow up:
== END 2017-01-26 16:25 | disposition disaster alternative care site (69) | DRG 440 ==
LOC: GMED 13:40 → GMSU 16:12
PROVIDERS: Physician Assistant; Physician Assistant Medical; ADMIT Hospitalist
PROC: 0DBE8ZX Excision of Large Intestine, Via Natural or Artificial Opening Endoscopic, Diagnostic (ICD-10-PCS; principal; 2017-01-26)
PROC: 0DB68ZX Excision of Stomach, Via Natural or Artificial Opening Endoscopic, Diagnostic (ICD-10-PCS; principal; 2017-01-26)
PROC: 0DB98ZX Excision of Duodenum, Via Natural or Artificial Opening Endoscopic, Diagnostic (ICD-10-PCS; principal; 2017-01-26)
DX: K85.10 Biliary acute pancreatitis without necrosis or infection (principal); R16.1 Splenomegaly, not elsewhere classified; E87.6 Hypokalemia; K21.9 Gastro-esophageal reflux disease without esophagitis; R63.4 Abnormal weight loss; Z68.27 Body mass index [BMI] 27.0-27.9, adult
CPT/HCPCS: C9113; J2405; J3480; J7030; J7050; Q9967

== ENCOUNTER 2017-01-27 02:58 | Observation (INO) | payer OTHER ==
[~2017-01-27] VITALS: Ht 162.6 cm; Wt 103.5 kg
--- NOTE | ~2017-01-27 | HP ---
PATIENT'S NAME: RHONDA ABREU [facility] AGE: 36 Y [address] ROOM: [id number] [place], [place] [address] LOCATION: [facility] [place] ADMIT DATE: 01/27/2017 History & Physical DISCHARGE DATE: FAMILY PHYSICIAN: GILL VINCENT ATTENDING PHYSICIAN: JIM NICOLE DATE OF SERVICE: CHIEF COMPLAINT: Recurrent abdominal pain in the right upper quadrant, more severe than the epigastric area since this morning. HISTORY OF PRESENT ILLNESS: This is a 36-year-old male who was just discharged from our hospital yesterday for biliary pancreatitis. The patient had an abdominal ultrasound on January 23, 2017, showing distended and sludge filled gallbladder, normal appearing pancreas and biliary tree, and splenomegaly. The patient had a CT abdomen and pelvis with contrast on January 22, 2017, showing negative abdomen and pelvic CT. Mildly distended gallbladder, could reflect fasting. No particular CT findings of acute cholecystitis. The patient had a MRI of the abdomen on January 23, 2017, without contrast showing distended gallbladder with sludge. Biliary tree nondilated. No common duct stones or gallstones. Splenomegaly. A small amount of peripancreatic fluid at the pancreatic head and the second portion of the duodenum consistent with a localized pancreatitis. The patient was treated conservatively and the pain resolved, and was going to have outpatient laparoscopic cholecystectomy in a couple weeks and also follow up with GI as an outpatient to go over the colonic biopsy that was obtained during the colonoscopy. During last admission, the patient also had EGD and colonoscopy, which were unremarkable. The patient had some diarrhea in the last admission and it was believed to be secondary to the bowel prep because he has not had a bowel movement since after the bowel prep. The story is that he went home last night. He was feeling fine, but last dinner he had some roast beef around 5:00 p.m. and he woke up at midnight with recurrent epigastric pain radiating to the back, and this time, he also has a right upper quadrant pain as well, but is more intense on the right upper quadrant than the epigastric pain. He felt nauseous, but he did not vomit. He has not had a bowel movement since he was discharged from the hospital. The patient came back here for evaluation because the pain was getting worse. He denies any fever or chills. No chest pain. No shortness of breath or cough. REVIEW OF SYSTEMS: As mentioned in the history of present illness. All other systems reviewed PATIENT'S NAME: RHONDA ABREU [facility] AGE: 36 Y [address] ROOM: [id number] [place], [place] [address] LOCATION: [facility] [place] ADMIT DATE: 01/27/2017 History & Physical DISCHARGE DATE: FAMILY PHYSICIAN: GILL VINCENT ATTENDING PHYSICIAN: JIM NICOLE and negative except those mentioned in the history of present illness. PAST MEDICAL HISTORY: 1. Gastroesophageal reflux disease. 2. Recent discharge yesterday from the hospital for biliary pancreatitis. 3. Colonoscopy on January 26, 2017, showed unremarkable with some colonic polyps, status post biopsy. EGD on January 26, 2017, showed distal esophagus with mild esophagitis and mild gastritis with erosions. No ulcers. Biopsy was obtained to rule out Helicobacter pylori. Mild duodenitis. No ulceration. Biopsies were also taken from the duodenum. 4. Splenomegaly, less likely to be hematopoietic or lymphoproliferative disorder after Hematology-Oncology evaluation on last admission. ALLERGIES: PENICILLIN, UNKNOWN REACTION. HOME MEDICATIONS: 1. Imodium 2 to 4 mg t.i.d. p.r.n. for diarrhea. 2. Tylenol 650 mg p.o. every 6 hours p.r.n. for pain or fever. 3. Flagyl 500 mg p.o. t.i.d. SOCIAL HISTORY: Very light formal cigarette smoker; he quit about 15 years ago; he only smoked about like 6 months with a 1 to 3 cigarettes per day. Denies any alcohol, and denies any illegal drugs. FAMILY HISTORY: He does not know much about his parents' past medical history because the patient is adopted. PAST SURGICAL HISTORY: Status post right knee surgery in the past. PHYSICAL EXAMINATION: VITAL SIGNS: Temperature 98.5, heart rate 62, respiration 15, blood pressure 126/75, and saturation 96% on room air. GENERAL APPEARANCE: Alert and oriented x3. In no acute distress. HEENT: Pupils are equally round and reactive to light. Extraocular muscles intact. Nasal turbinates are normal bilaterally. Moist oral mucosa. NECK: No JVD. CARDIOVASCULAR: Regular rate and rhythm. Normal S1, S2. No murmurs, no rubs, no gallops. RESPIRATORY: Clear. Chest wall nontender to palpation. ABDOMEN: Soft, mildly tender to palpation in the right upper quadrant and also in the epigastric area. No abdominal rigidity. Bowel sounds are PATIENT'S NAME: RHONDA ABREU [facility] AGE: 36 Y [address] ROOM: [address] [address] LOCATION: [facility] [place] ADMIT DATE: 01/27/2017 History & Physical DISCHARGE DATE: FAMILY PHYSICIAN: GILL VINCENT ATTENDING PHYSICIAN: JIM NICOLE present. Could not appreciate hepatomegaly. Bowel sounds are present. Nondistended. EXTREMITIES: No edema in the upper or lower extremities. SKIN: No ulcer, no rash, no cyanosis. MUSCULOSKELETAL: No joint pain and no muscle pain. Range of motion intact. NEUROLOGICAL: Grossly nonfocal. LABORATORY DATA: Lactic acid 0.97. White blood cells 6.3, hemoglobin 15.2, hematocrit 44.7, MCV 81.1, platelets 287. Glucose 103, BUN 8, creatinine 1.0, sodium 145, potassium 3.8, chloride 110, CO2 of 27, calcium 8.5, total protein 6.6, albumin 3.4, AST 61, ALT 119, alkaline phosphatase 71, total bilirubin 0.5, GFR more than 60, procalcitonin less than 0.05, lipase 924, amylase 93. IMAGING STUDY: None so far. ASSESSMENT AND PLAN: 1. Regarding his recurrent pancreatitis, likely secondary to biliary sludge: I will get a complete abdominal ultrasound. N.p.o. IV fluids and narcotics for pain control with Dilaudid p.r.n. Awaiting for the complete abdominal ultrasound to come back before consulting General Surgery. I am not going to consult GI for now because GI already saw the patient on last admission, and depending on the abdominal ultrasound report first, CT of abdomen and pelvis or MRCP, I will defer to the morning hospitalist to decide if it is necessary to repeat again. Further plan depends on clinical course. 2. Regarding his gastroesophageal reflux disease: Continue him with Protonix 40 mg p.o. daily. 3. Regarding his deep vein thrombosis prophylaxis: Compression devices. 4. Code status: The patient is a full code. Time spent on the day of admission 35 minutes including chart review, interviewing and examining the patient, addressing all the questions and concerns the patient had, and I went over the plan of care in detail with the nurses, with the patient and the patient's at the bedside. Further plan depends on clinical course and medical provider who will be taking over the care on 01/28/17 at 8 AM when shift changes. JIM NICOLE MD CC/ana PATIENT'S NAME: RHONDA ABREU [facility] AGE: 36 Y [address] ROOM: [place] [address] LOCATION: [facility] [place] ADMIT DATE: 01/27/2017 History & Physical DISCHARGE DATE: FAMILY PHYSICIAN: GILL VINCENT ATTENDING PHYSICIAN: JIM NICOLE /[id number] D: [id number] T: [id number] HISTORY & PHYSICAL
--- NOTE | ~2017-01-27 | ER ---
PATIENT'S NAME: RHONDA ABREU [facility] AGE: 36 Y [address] ROOM: [id number] [place], [place] [address] LOCATION: [facility] [place] ADMIT DATE: 01/27/2017 ER/Outpatient Report DISCHARGE DATE: FAMILY PHYSICIAN: GILL VINCENT ATTENDING PHYSICIAN: JIM NICOLE HISTORY OF PRESENT ILLNESS: This is a 36-year-old male, who presents with chief complaint of right upper quadrant abdominal pain. He says this started 4 hours ago. It is associated with nausea, but no fever or chills. He does not have any urinary symptoms. His last BM was yesterday as well. The patient states that he was recently discharged from the hospital approximately 12 hours ago and went to his hotel and felt fine, but 3 hours prior to coming in started developing this right upper quadrant pain which was initially colicky in nature at the beginning, but is now constant. He also has some nausea from this, but no vomiting. He describes it as sharp and stabbing and it is worse than the pain that he was admitted for a few days ago. The patient was admitted to the hospital a few days ago and found to have biliary pancreatitis, splenomegaly and elevated liver function tests. He had a workup done in the ER in the hospital. He had ultrasound which showed biliary sludge, but no gallstones. He also had a CBD that was 5 mm. He also underwent an MRI of abdomen which also showed sludge, but no evidence of cholecystitis or common bile duct obstruction. He states that I reviewed his labs and his lipase was as high as 1100 when he was first admitted and it trended down to 700 two days ago and it was trending down where the patient was doing better with no pain, so that is why they decided to send him home yesterday. He also had a GI consult under which they did like an EGD and a colonoscopy as well which were mostly within normal limits. The patient reports his pain is 8/10. He has not taken anything for pain though. Denies alcohol use. PAST MEDICAL HISTORY: Includes pancreatitis and splenomegaly. PAST SURGICAL HISTORY: Includes knee surgery and eye surgery. SOCIAL HISTORY: He does not smoke. He does not use any drugs. He does not drink alcohol. MEDICATIONS: Please see med list. ALLERGIES: PENICILLIN. PATIENT'S NAME: RHONDA ABREU [facility] AGE: 36 Y [address] ROOM: [id number] [place], [place] [address] LOCATION: [facility] [place] ADMIT DATE: 01/27/2017 ER/Outpatient Report DISCHARGE DATE: FAMILY PHYSICIAN: GILL VINCENT ATTENDING PHYSICIAN: JIM NICOLE REVIEW OF SYSTEMS: Reviewed by me and negative with the exception of those discussed in the HPI. PHYSICAL EXAMINATION: GENERAL: The patient is 6 feet 4 inches, he weighs 103.5 kilos. Blood pressure 144/53, heart rate 68, respiratory rate 44, temperature 97.6, saturating 99% on room air. GENERAL: The patient looks uncomfortable, although nontoxic. He is not actively vomiting or retching. He is alert and oriented x4. Walked into the ER without difficulty. GCS is 15. CHEST: He has regular rate and rhythm. He is not tachycardic. He is not hypotensive. No respiratory distress. ABDOMEN: He does have positive tenderness in the right upper quadrant and in the epigastric area. No CVA tenderness bilaterally though negative Taylor sign. No right lower quadrant tenderness. No left lower quadrant tenderness. No suprapubic tenderness. Normoactive bowel sounds. SKIN: Warm, dry, intact. He does not appear jaundiced. EMERGENCY ROOM COURSE: An IV was established. The patient was given 4 mg of morphine, which did not really help him, so we gave him Toradol 30 mg IV as well. We checked a CBC, CMS, lactic, procalcitonin, amylase and lipase, so the lab work showed a procalcitonin of 0.05 and lactic acid was normal. CMS showed a sodium of 145, potassium 3.8, chloride 110, CO2 27, anion gap 11.8, BUN is 8, creatinine is 1, bilirubin was 0.5, alkaline phosphatase was 71, AST is 61, ALT is 119, amylase is 93 and lipase is 924. The AST, ALT, amylase and lipase have trended up since 2 days ago. CBC shows a white blood cell count of 6.3, H and H of 15.2/44.7, and platelets 287. No bandemia. The patient continued to complain of pain. He states that they were hoping for this inflammation phase to go away, so then he could get an outpatient sort of cholecystectomy. Given that, he has persistent pain, I will admit him to the hospital for pain control and likely surgery consult for a cholecystectomy. I discussed this with Dr. Nicole, who is our hospitalist and the patient to be admitted to the Med/Surg floor in stable condition. IMPRESSION: Pancreatitis, biliary colic. MD ROYA SCHUSTER/ana PATIENT'S NAME: RHONDA ABREU [facility] AGE: 36 Y [address] ROOM: [place] [address] LOCATION: [facility] [place] ADMIT DATE: 01/27/2017 ER/Outpatient Report DISCHARGE DATE: FAMILY PHYSICIAN: GILL VINCENT ATTENDING PHYSICIAN: JIM NICOLE /[id number] d: 01/27/17618 t: 01/30/17 0028, OUTPATIENT REPORT
--- NOTE | ~2017-01-27 | HP ---
PATIENT'S NAME: RHONDA ABREU [facility] AGE: 36 Y [address] ROOM: [id number] [place], [place] [address] LOCATION: [facility] [place] ADMIT DATE: 01/27/2017 History & Physical DISCHARGE DATE: FAMILY PHYSICIAN: GILL VINCENT ATTENDING PHYSICIAN: JIM NICOLE DATE OF SERVICE: CHIEF COMPLAINT: Recurrent abdominal pain in the right upper quadrant, more severe than the epigastric area since this morning. HISTORY OF PRESENT ILLNESS: This is a 36-year-old male who was just discharged from our hospital yesterday for biliary pancreatitis. The patient had an abdominal ultrasound on January 23, 2017, showing distended and sludge filled gallbladder, normal appearing pancreas and biliary tree, and splenomegaly. The patient had a CT abdomen and pelvis with contrast on January 22, 2017, showing negative abdomen and pelvic CT. Mildly distended gallbladder, could reflect fasting. No particular CT findings of acute cholecystitis. The patient had a MRI of the abdomen on January 23, 2017, without contrast showing distended gallbladder with sludge. Biliary tree nondilated. No common duct stones or gallstones. Splenomegaly. A small amount of peripancreatic fluid at the pancreatic head and the second portion of the duodenum consistent with a localized pancreatitis. The patient was treated conservatively and the pain resolved, and was going to have outpatient laparoscopic cholecystectomy in a couple weeks and also follow up with GI as an outpatient to go over the colonic biopsy that was obtained during the colonoscopy. During last admission, the patient also had EGD and colonoscopy, which were unremarkable. The patient had some diarrhea in the last admission and it was believed to be secondary to the bowel prep because he has not had a bowel movement since after the bowel prep. The story is that he went home last night. He was feeling fine, but last dinner he had some roast beef around 5:00 p.m. and he woke up at midnight with recurrent epigastric pain radiating to the back, and this time, he also has a right upper quadrant pain as well, but is more intense on the right upper quadrant than the epigastric pain. He felt nauseous, but he did not vomit. He has not had a bowel movement since he was discharged from the hospital. The patient came back here for evaluation because the pain was getting worse. He denies any fever or chills. No chest pain. No shortness of breath or cough. REVIEW OF SYSTEMS: As mentioned in the history of present illness. All other systems reviewed PATIENT'S NAME: RHONDA ABREU [facility] AGE: 36 Y [address] ROOM: [id number] [place], [place] [address] LOCATION: [facility] [place] ADMIT DATE: 01/27/2017 History & Physical DISCHARGE DATE: FAMILY PHYSICIAN: GILL VINCENT ATTENDING PHYSICIAN: JIM NICOLE and negative except those mentioned in the history of present illness. PAST MEDICAL HISTORY: 1. Gastroesophageal reflux disease. 2. Recent discharge yesterday from the hospital for biliary pancreatitis. 3. Colonoscopy on January 26, 2017, showed unremarkable with some colonic polyps, status post biopsy. EGD on January 26, 2017, showed distal esophagus with mild esophagitis and mild gastritis with erosions. No ulcers. Biopsy was obtained to rule out Helicobacter pylori. Mild duodenitis. No ulceration. Biopsies were also taken from the duodenum. 4. Splenomegaly, less likely to be hematopoietic or lymphoproliferative disorder after Hematology-Oncology evaluation on last admission. ALLERGIES: PENICILLIN, UNKNOWN REACTION. HOME MEDICATIONS: 1. Imodium 2 to 4 mg t.i.d. p.r.n. for diarrhea. 2. Tylenol 650 mg p.o. every 6 hours p.r.n. for pain or fever. 3. Flagyl 500 mg p.o. t.i.d. SOCIAL HISTORY: Very light formal cigarette smoker; he quit about 15 years ago; he only smoked about like 6 months with a 1 to 3 cigarettes per day. Denies any alcohol, and denies any illegal drugs. FAMILY HISTORY: He does not know much about his parents' past medical history because the patient is adopted. PAST SURGICAL HISTORY: Status post right knee surgery in the past. PHYSICAL EXAMINATION: VITAL SIGNS: Temperature 98.5, heart rate 62, respiration 15, blood pressure 126/75, and saturation 96% on room air. GENERAL APPEARANCE: Alert and oriented x3. In no acute distress. HEENT: Pupils are equally round and reactive to light. Extraocular muscles intact. Nasal turbinates are normal bilaterally. Moist oral mucosa. NECK: No JVD. CARDIOVASCULAR: Regular rate and rhythm. Normal S1, S2. No murmurs, no rubs, no gallops. RESPIRATORY: Clear. Chest wall nontender to palpation. ABDOMEN: Soft, mildly tender to palpation in the right upper quadrant and also in the epigastric area. No abdominal rigidity. Bowel sounds are PATIENT'S NAME: RHONDA ABREU [facility] AGE: 36 Y [address] ROOM: [address] [address] LOCATION: [facility] [place] ADMIT DATE: 01/27/2017 History & Physical DISCHARGE DATE: FAMILY PHYSICIAN: GILL VINCENT ATTENDING PHYSICIAN: JIM NICOLE present. Could not appreciate hepatomegaly. Bowel sounds are present. Nondistended. EXTREMITIES: No edema in the upper or lower extremities. SKIN: No ulcer, no rash, no cyanosis. MUSCULOSKELETAL: No joint pain and no muscle pain. Range of motion intact. NEUROLOGICAL: Grossly nonfocal. LABORATORY DATA: Lactic acid 0.97. White blood cells 6.3, hemoglobin 15.2, hematocrit 44.7, MCV 81.1, platelets 287. Glucose 103, BUN 8, creatinine 1.0, sodium 145, potassium 3.8, chloride 110, CO2 of 27, calcium 8.5, total protein 6.6, albumin 3.4, AST 61, ALT 119, alkaline phosphatase 71, total bilirubin 0.5, GFR more than 60, procalcitonin less than 0.05, lipase 924, amylase 93. IMAGING STUDY: None so far. ASSESSMENT AND PLAN: 1. Regarding his recurrent pancreatitis, likely secondary to biliary sludge: I will get a complete abdominal ultrasound. N.p.o. IV fluids and narcotics for pain control with Dilaudid p.r.n. Awaiting for the complete abdominal ultrasound to come back before consulting General Surgery. I am not going to consult GI for now because GI already saw the patient on last admission, and depending on the abdominal ultrasound report first, CT of abdomen and pelvis or MRCP, I will defer to the morning hospitalist to decide if it is necessary to repeat again. Further plan depends on clinical course. 2. Regarding his gastroesophageal reflux disease: Continue him with Protonix 40 mg p.o. daily. 3. Regarding his deep vein thrombosis prophylaxis: Compression devices. 4. Code status: The patient is a full code. Time spent on the day of admission 35 minutes including chart review, interviewing and examining the patient, addressing all the questions and concerns the patient had, and I went over the plan of care in detail with the nurses, with the patient and the patient's at the bedside. Further plan depends on clinical course and medical provider who will be taking over the care on 01/28/17 at 8 AM when shift changes. JIM NICOLE MD CC/ana PATIENT'S NAME: RHONDA ABREU [facility] AGE: 36 Y [address] ROOM: [place] [address] LOCATION: [facility] [place] ADMIT DATE: 01/27/2017 History & Physical DISCHARGE DATE: FAMILY PHYSICIAN: GILL VINCENT ATTENDING PHYSICIAN: JIM NICOLE /[id number] D: [id number] T: [id number] HISTORY & PHYSICAL
--- NOTE | ~2017-01-27 | OR ---
PATIENT'S NAME: RHONDA ABREU [facility] AGE: 36 Y [address] ROOM: [place] [address] LOCATION: [facility] [place] ADMIT DATE: 01/27/2017 OR/Procedure Report DISCHARGE DATE: FAMILY PHYSICIAN: GILL VINCENT ATTENDING PHYSICIAN: JIM NICOLE SURGEON: Keenan Jacobsen MD CHIEF YEOMAN: Jeison Moya PA-C DATE OF PROCEDURE: 01/27/2017 PREOPERATIVE DIAGNOSES: 1. History of gallstone pancreatitis. 2. Cholecystitis. 3. Biliary colic. POSTOPERATIVE DIAGNOSES: 1. History of gallstone pancreatitis. 2. Cholecystitis. 3. Biliary colic. PROCEDURE PERFORMED: Laparoscopic cholecystectomy with intraoperative cholangiogram. ANESTHESIA: General with 30 mL of 0.5% Marcaine. SPECIMENS: Gallbladder with evidence of thick wall, pericholecystic edema, and thick sludge. ESTIMATED BLOOD LOSS: 25 mL. INDICATION: The patient is a 36-year-old gentleman who, for the last 2 weeks, has been having some abdominal pain, bloating, lots of diarrhea and nausea. He has had mild epigastric discomfort. He was admitted to the hospital on the when he was found to have pancreatitis. The workup of the biliary tract revealed a distended gallbladder with a lot of thick sludge. No definite stones on ultrasound or CAT scan. Mild pancreatitis noted of the head of the pancreas. MRCP showed no filling defects. The patient was discharged, but presented 12 hours later after biliary colic attack during the evening on the day of discharge and was found to have a mild elevation of his lipase, mild elevation of amylase, and tenderness in the right upper quadrant, which quickly resolved. It was felt that he was having gallstone pancreatitis, likely from thick sludge, possible microcrystals or small stones not visualized. We recommended gallbladder removal. DESCRIPTION OF PROCEDURE: After informed consent, the patient was taken to the operating room, and after general endotracheal anesthesia, the patient's PATIENT'S NAME: RHONDA ABREU [facility] AGE: 36 Y [address] ROOM: [place] [address] LOCATION: [facility] [place] ADMIT DATE: 01/27/2017 OR/Procedure Report DISCHARGE DATE: FAMILY PHYSICIAN: GILL VINCENT ATTENDING PHYSICIAN: JIM NICOLE abdomen was prepped and draped into a sterile field. Time-out performed. We identified the patient, administration of preop antibiotics, and the planned procedure. Local anesthetic was infiltrated prior to each incision, the first one made below the umbilicus and carried down to identify the anterior fascia through which a Veress needle inserted and pneumoperitoneum created. Trocar and laparoscope inserted. Under direct vision, the remaining trocars were placed. The gallbladder was covered with omentum. Once stripped off and adhesions taken down, the gallbladder was distended. It was pale. It was edematous, obviously diseased. We retracted it cephalad. During retraction, the fundus did tear. Thick, tenacious bile was extruded and was aspirated up. We dilated. We then grabbed the infundibulum and dissected out the hepatoduodenal ligament. A slightly enlarged cystic duct was noted. We got circumferential control, placed a clip on the gallbladder end, did a cystotomy, inserted our cholangiogram catheter, used Isovue-30 contrast, and performed a cholangiogram. We had correct anatomy identified. No filling defects. Free flow of contrast into the duodenum. We removed the cholangiogram catheter, clipped the cystic duct x3 distally, and divided. Cystic artery then dissected free, isolated, clipped, and divided. Gallbladder removed from liver bed with electrocautery, placed into an EndoCatch bag. We brought it out through the umbilical incision. We had irrigated the right upper quadrant with 2 L of normal saline to clear it. We then used Endo Stitch of 0 Vicryl to close the sub-fascia, fascia defect. We removed the remaining trocars and released the pneumoperitoneum. Midline umbilical fascia defect closed with 0 Vicryl. Skin closed with subcuticular 4- 0 Vicryl. Steri-Strips and sterile dressings applied. The patient tolerated the procedure well. Instrument, sponge, and needle count were correct. The patient transferred to the recovery room in stable condition. MD MIGUEL PAREDES/ana /[id number] d: 01/27/17 1705 t: 02/06/17 1004, OPERATIVE SUMMARY
--- NOTE | ~2017-01-27 | CON ---
PATIENT'S NAME: KYLER ABREU [facility] AGE: 36 Y [address] ROOM: [id number] [place], [place] [address] LOCATION: [facility] [place] ADMIT DATE: 01/27/2017 Consultation DISCHARGE DATE: FAMILY PHYSICIAN: GILL VINCENT ATTENDING PHYSICIAN: JIM NICOLE DATE OF CONSULTATION: 01/27/2017 REFERRING PHYSICIAN: Veronica Figueroa MD CHIEF COMPLAINT: Abdominal pain. REVIEW OF RECORD: Kyler Abreu is a pleasant 36-year-old gentleman whom I was asked see at the request Dr. Figueroa for the evaluation of history of pancreatitis and gallbladder sludge. The patient in his own review stated that 2-1/2 weeks ago, he started having a lot of diarrhea, it is very foul smelling. He could remember of it was greasy or not. He said he felt like crappy, lost some weight, and then started having increasing abdominal distention and bloating. He had nausea, no vomiting. He had some low-grade fevers. He stated he was seen in [facility], no specific diagnosis obtained. He was out of town and driving through [place] on Monday afternoon when he just felt miserable and they decided as a family to stop and get evaluation in the emergency room. At that time, on the , he was found to have a white count that was normal at 6.4, hemoglobin 15.5. His AST and ALT were mildly elevated. His bilirubin was normal. His lipase was 1291. His amylase was 101. His urinalysis was clear. He underwent ultrasound that showed sludge and distended gallbladder. He had essentially normal common bile duct and mildly increased size of the spleen, a CT scan was performed that showed no other acute abnormalities. He was admitted to the hospital with pancreatitis most likely secondary to his gallbladder. No definite stones were noted. He also had some mild hypokalemia and diarrhea. He underwent an evaluation once admitted per the hospitalist service. MRCP showed a clear common bile duct. No dilation. Sludge in the gallbladder noted again. Gastroenterology felt that to evaluate and make sure for the diarrhea and epigastric pain. EGD showed mild friability of the mucosa of the duodenal, otherwise is normal. No ulcers. His colonoscopy showed he has had several polyps removed. Pathology was benign and there was no evidence of Crohn disease and the terminal ilium was inspected. The patient was resolving his symptoms, was started on a diet and elected to go home on afternoon. They elected also to stay in town that evening. The patient did eat dinner and then later on that evening, a couple hours after eating he had awoke with abdominal pain. This time more centered in the right upper quadrant. 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 His lipase is 924, his amylase is 93. His pain was relieved with morphine and Dilaudid and currently is PATIENT'S NAME: KYLER ABREU [facility] AGE: 36 Y [address] ROOM: [address] [address] LOCATION: [facility] [place] ADMIT DATE: 01/27/2017 Consultation DISCHARGE DATE: FAMILY PHYSICIAN: GILL VINCENT ATTENDING PHYSICIAN: JIM NICOLE. I reviewed the a long list. The patient is reviewed. Denies any alcohol abuse. Denies any abdominal trauma no foreign travel. No change in his medication. He has no previous abdominal operations. He has never had this type of illness before, has no history of pancreatitis in the family as a history which is known. PAST MEDICAL HISTORY: Illnesses. 1. History of pancreatitis, presumed gallstone in nature. 2. Mild splenomegaly. 3. Diarrhea. OPERATIONS: Knee arthroscopy, eye surgery, EGD, and colonoscopy. SOCIAL HISTORY: Does not smoke or drink alcohol. He is . Works for [employer]. Has 4 girls. ALLERGIES: PENICILLIN. FAMILY HISTORY: Some heart disease on his mom's side. Does not know his paternal side of the family. REVIEW OF SYSTEMS: He reports a few pound weight loss. Denies any jaundice. Denies any history of hepatitis. Denies any acute change in hearing or vision. No problems swallowing. He has not had any emesis. No dysphagia. No acid reflux symptoms. No shortness of breath or productive cough. No chest pain. No abdominal pain at this time in the lower abdomen or left upper quadrant, just mild discomfort in the right upper quadrant. He has no dysuria or hematuria. He has not had any change in his urine color. Denies any swollen joints, skin rashes, or back pain. Denies any altered mental status or depression. PHYSICAL EXAMINATION: GENERAL: He is a pleasant fit 36-year-old gentleman, alert, in no distress. HEENT: Head normocephalic. Sclerae are nonicteric. Mucous membranes are dry. NECK: Supple. There is no adenopathy. No thyromegaly to palpation. LUNGS: Clear to auscultation. HEART: Normal sinus rhythm. ABDOMEN: Flat, positive bowel sounds. No surgical scar evident. Abdomen is mildly tender in right upper quadrant. No Taylor sign. No palpable mass, PATIENT'S NAME: KYLER ABREU [facility] AGE: 36 Y [address] ROOM: [place] [address] LOCATION: [facility] [place] ADMIT DATE: 01/27/2017 Consultation DISCHARGE DATE: FAMILY PHYSICIAN: GILL VINCENT ATTENDING PHYSICIAN: JIM NICOLE hepatomegaly, or splenomegaly to percussion. His lower abdomen is soft and nontender. EXTREMITIES: 2/2 femoral and dorsalis pedis pulses. No peripheral edema. IMPRESSION: Complicated history of 2 weeks with some diarrhea leading to abdominal pain. Diagnosis of pancreatitis with only sludge in the gallstones, no definitive stones noted on extensive radiological workup. The patient is readmitted with what sounds like biliary colic attack which was lasted a couple hours and is located the right upper quadrant. I had a long discussion with the patient regarding surgical options. We talked about observation. We talked about the etiology of pancreatitis and number two causes are gallstones and alcohol. We talked there has been some reports of sludge associated with pancreatitis. I told him that if he had some abdominal pain and had sludge, would necessary offer gallbladder removal. Since he had pancreatitis and no other etiology, gives an option of removing the gallbladder in hopes of preventing further attacks. I talked about cholangiogram assessment of the common bile duct as well. I explained the procedure, benefits, and risks of operative intervention including not limited to abdominal wall hernias, hollow viscus, bowel injury, bleeding requiring transfusion or surgical reoperation, common bile duct injury, sustained another operation for repair, was transferred to a higher level of care, bile leak, cardiopulmonary decompensation, and loss of life. We talked about possibility of ongoing symptoms despite gallbladder removal. After our discussion, the patient and his logically discussed and decided to proceed in hopes of alleviating his symptoms and returning to back to baseline. Thank you very much for allowing me to participate in his care. MD MIGUEL PAREDES/ana /[id number] d: 01/27/17 1527 t: 02/06/17 1001, CONSULTATION REPORT
[~2017-01-27 02:58] MED LIST: BACTRIM DS1 TAB PO; FLAGYL500 MG PO; IMODIUM2 MG PO; TYLENOL325 MG PO; ZOFRAN4 MG PO
[2017-01-27 03:33] LABS: BASOPHIL # 0.1 K/uL (0.0-0.2); EOSINOPHIL # 0.1 K/uL (0.0-0.5); HEMATOCRIT 44.7 % (37.0-53.0); HEMOGLOBIN 15.2 g/dL (12.0-17.0); IMMATURE GRANULOCYTE % 0.2 %; LYMPHOCYTE # 2.1 K/uL (0.8-4.0); LYMPHOCYTE % 34.1 %; MCH 27.6 pg (27.0-34.0); MCV 81.1 fl (83.0-98.0); MONOCYTE # 0.5 K/uL (0.0-1.0); MONOCYTE % 8.2 %; MPV 10.6 fl (9.4-12.4); NEUTROPHIL # (ANC) 3.5 K/uL (1.4-9.0); NEUTROPHIL % 55.5 %; NRBC % 0 /100WBC (0-0.00); RBC 5.51 M/uL (4.00-6.00); RDW-CV 13.1 % (11.9-14.6); WBC 6.3 K/uL (4.0-11.0)
[2017-01-27 03:35] LABS: PLATELET COUNT 287 K/uL (150-450)
[2017-01-27 03:55] LABS: ALBUMIN 3.4 gm/dL (3.5-5.0); ALK PHOS 71 IU/L (33-138); ALT 119 IU/L (12-78); ANION GAP 11.8 (10.0-19.0); AST 61 IU/L (10-40); BLOOD UREA NITROGEN 8 mg/dL (6-24); CALCIUM 8.5 mg/dL (8.5-10.5); CHLORIDE 110 mMol/L (96-110); CO2 27 mMol/L (22-32); ESTIMATED GFR (MDRD EQUATION) > 60; POTASSIUM 3.8 mMol/L (3.7-5.1); SODIUM 145 mMol/L (135-145); TOTAL BILIRUBIN 0.5 mg/dL (0.0-1.5); TOTAL PROTEIN 6.6 g/dL (6.0-8.4)
--- NOTE | 2017-01-27 05:26 | NUR ---
Patient alert and oriented x3, very pleasant and cooperative, c/o right upper quad pain, was discharged yesterday for panctreatitis, arrived on floor at 0500,
--- NOTE | 2017-01-27 17:11 | NUR ---
Significant event: patient is alert and oriented x3. VSS. on room air. IV to left posterior forearm with fluids running. Had rodolfo w/IOC today. 4 stab incisions to abd. Umbilical dressing changed due to saturation. Ice applied to area. Morphine given at 1517. Had norco 2 tabs at 1327 in PACU. Tolerating clear liquids, is able to advance as tolerated. Up with stand by assist as needed, due to being a little unsteady. Cooperative with cares. Family at bedside.
--- NOTE | 2017-01-28 00:07 | NUR ---
Significant Event: I GAVE CARES TO THIS PATIENT FROM [id number]. HIS DRESSINGS ARE INTACT. THE UPPER MIDLINE DRESSING HAS MODERATE DRAINAGE NOTED. 2 NORCO TABLETS GIVEN LAST @ 2310 FOR PAIN RATED AT #5. ABLE TO TOLERATE CHICKEN NOODLE SOUP, CRACKERS AND PEANUT BUTTER WITHOUT EMESIS. DRINKS FLUIDS WELL. AMBULATED IN HALLS INDEPENDENTLY. IV SALINE LOCKED. PNEUMATIC CALF SOX OFF AT THIS TIME. Follow up: PROBABLE DISMISSAL TO HOME IN AM
[2017-01-28 06:04] LABS: BASOPHIL # 0.1 K/uL (0.0-0.2); BASOPHIL % 0.6 %; EOSINOPHIL % 0.4 %; HEMATOCRIT 40.2 % (37.0-53.0); HEMOGLOBIN 13.5 g/dL (12.0-17.0); IMMATURE GRANULOCYTE % 0.4 %; LYMPHOCYTE # 2.2 K/uL (0.8-4.0); LYMPHOCYTE % 25.6 %; MCH 27.4 pg (27.0-34.0); MCHC 33.6 gm/dL (32.0-36.5); MCV 81.5 fl (83.0-98.0); MONOCYTE # 0.7 K/uL (0.0-1.0); MONOCYTE % 7.7 %; MPV 10.7 fl (9.4-12.4); NEUTROPHIL # (ANC) 5.5 K/uL (1.4-9.0); NEUTROPHIL % 65.3 %; NRBC % 0 /100WBC (0-0.00); PLATELET COUNT 249 K/uL (150-450); RBC 4.93 M/uL (4.00-6.00); RDW-CV 13.2 % (11.9-14.6); WBC 8.4 K/uL (4.0-11.0)
[2017-01-28 06:30] LABS: ALK PHOS 54 IU/L (33-138); ALT 114 IU/L (12-78); ANION GAP 9.1 (10.0-19.0); AST 70 IU/L (10-40); BLOOD UREA NITROGEN 5 mg/dL (6-24); CALCIUM 8.6 mg/dL (8.5-10.5); CHLORIDE 106 mMol/L (96-110); CO2 30 mMol/L (22-32); CREATININE 0.9 mg/dL (0.6-1.3); ESTIMATED GFR (MDRD EQUATION) > 60; POTASSIUM 4.1 mMol/L (3.7-5.1); SODIUM 141 mMol/L (135-145); TOTAL PROTEIN 5.7 g/dL (6.0-8.4)
[2017-01-28 06:31] LABS: TOTAL BILIRUBIN 0.7 mg/dL (0.0-1.5)
--- NOTE | 2017-01-28 07:05 | NUR ---
Significant Event: Pt cares from [id number]. Pt has rested well throughout the night. 1 norco given with relief noted around 0400. IV saline locked. Lap sites x4. Has denied nausea. Not passing flatus yet. Up ambulating independently. Follow up:
[2017-01-28] MEDS ORDERED: NORCO 5-325 TA1 EACH PO (11:12)
== END 2017-01-28 13:00 | disposition disaster alternative care site (69) ==
LOC: GMED 02:58 → GMSU 04:37
PROVIDERS: Emergency Medicine; Physician Assistant; ADMIT Internal Medicine
PROC: 0FT44ZZ Resection of Gallbladder, Percutaneous Endoscopic Approach (ICD-10-PCS; principal; 2017-01-27)
PROC: BF03YZZ Plain Radiography of Gallbladder and Bile Ducts using Other Contrast (ICD-10-PCS; 2017-01-27)
DX: K80.10 Calculus of gallbladder with chronic cholecystitis without obstruction (principal); F17.210 Nicotine dependence, cigarettes, uncomplicated; K21.9 Gastro-esophageal reflux disease without esophagitis; Z88.0 Allergy status to penicillin; Z98.890 Other specified postprocedural states
CPT/HCPCS: C9113; G0378; J0694; J1885; J2270; J2405; J3010; J3360; J7030; J7120